=== PATIENT | male | born 1935 | race Two or more races ===

== ENCOUNTER 2022-04-11 10:21 | Emergency (ER) | payer BC ==
[~2022-04-11] VITALS: Ht 152.4 cm; Wt 63.5 kg
[2022-04-11] MEDS ORDERED: SITA100T PO (10:56)
[2022-04-11] MEDS ORDERED: OXYB-58 PO (10:56)
[2022-04-11] MEDS ORDERED: AMIT10TA6 PO (10:56)
[2022-04-11] MEDS ORDERED: PRAV40TA3 PO (10:56)
[2022-04-11] MEDS ORDERED: PHEN-895 PO (10:56)
[2022-04-11] MEDS ORDERED: REPA1TAB7 PO (10:56)
[2022-04-11] MEDS ORDERED: CLOP75TA15 PO (10:56)
[2022-04-11] MEDS ORDERED: METF-440 PO (10:56)
--- NOTE | 2022-04-11 11:08 | NUR ---
dr dominguez at bedside for eval.
[2022-04-11] MEDS ORDERED: [UNRECOGNIZED DRUG - OTHER] PO (11:19)
[2022-04-11] MEDS ORDERED: PRANDIN PO (11:19)
[2022-04-11] MEDS ORDERED: SIRO1TAB6 PO (11:19)
[2022-04-11] MEDS ORDERED: WHEA1POW6 PO (11:20)
[2022-04-11] MEDS ORDERED: LACT1CAP80 PO (11:20)
[2022-04-11] MEDS ORDERED: INSU100I24 SQ (11:20)
[2022-04-11] MEDS ORDERED: CALC-343 PO (11:20)
[2022-04-11] MEDS ORDERED: OMEG1CAP55 PO (11:20)
[2022-04-11] MEDS ORDERED: ASPI-1169 PO (11:20)
[2022-04-11] MEDS ORDERED: MELA5TAB PO (11:20)
[2022-04-11] MEDS ORDERED: POLY17PO4 PO (11:20)
--- NOTE | 2022-04-11 12:20 | NUR ---
DR KENNY BACK AT BEDSIDE FOR [employer] REPLACEMENT.
--- NOTE | 2022-04-11 12:26 | NUR ---
URINE COLLECTED AND SENT TO LAB
[2022-04-11 13:33] LABS: BILIRUBIN,URINE SMALL (NEGATIVE); COLOR,URINE DARK YELLOW (YELLOW); LEUKOCYTE ESTERASE ,URINE MODERATE (NEGATIVE); NITRITE, URINE POSITIVE (NEGATIVE); PROTEIN,URINE >=300 mg/dl (NEGATIVE); UGLUCOSE 100 MG/DL mg/dL (NEGATIVE)
[2022-04-11] MEDS ORDERED: CIPR500T5 PO (13:35)
[2022-04-11 13:45] LABS: BACTERIA,URINE Many /HPF (None Seen); RBC,URINE 21-50 /HPF (0-2); SQUAMOUS EPITHELIAL CELL,UR Few /HPF (None Seen)
[2022-04-11 14:03] VITALS: BP 125/70
--- NOTE | 2022-04-11 14:03 | NUR ---
Patient discharged to home in stable condition. Written and verbal after care instructions given. Patient verbalizes understanding of instruction.
== END 2022-04-11 14:06 | disposition home or self-care (01) ==
LOC: ER 10:35
DX: T83.091A Other mechanical complication of indwelling urethral catheter, initial encounter (principal); I10 Essential (primary) hypertension; Z79.82 Long term (current) use of aspirin; Z79.899 Other long term (current) drug therapy
CPT/HCPCS: 81001; 87086-TC